=== PATIENT | male | born 1930 | race Caucasian/White ===

== ENCOUNTER 2017-08-11 19:40 | Inpatient (IN) | payer OTHER ==
[~2017-08-11] VITALS: Ht 177.8 cm; Wt 73.0 kg
[2017-08-11 19:55] VITALS: BP_SYST 123
[2017-08-11] MEDS ORDERED: NACL 0.9% 1,000 ML IV SCH (21:36)
[2017-08-11 22:47] LABS: BILIRUBIN,URINE NEGATIVE (NEGATIVE); CLARITY/URINE CLEAR (CLEAR); COLOR,URINE YELLOW (YELLOW); GLUCOSE,URINE NEGATIVE (NEGATIVE); KETONES,URINE NEGATIVE (NEGATIVE); LEUKOCYTE ESTERASE ,URINE TRACE (NEGATIVE); NITRITE, URINE NEGATIVE (NEGATIVE); PROTEIN URINE NEGATIVE (NEGATIVE)
[2017-08-11 22:53] LABS: BLOOD, URINE TRACE (NEGATIVE)
[2017-08-11 22:54] LABS: BACTERIA,URINE FEW /HPF (None Seen); RBC,URINE 0-3 /HPF (0-3)
[2017-08-11 22:55] LABS: MUCUS,URINE None Seen /LPF (None Seen)
[2017-08-11 22:57] LABS: BASOPHILS % (AUTO) 0.3 % (0.0-2.0); EOSINOPHILS # (AUTO) 0.2 K/uL (0.0-0.4); HEMATOCRIT 38.5 % (36-54); HEMOGLOBIN 12.9 g/dL (14.0-18.0); LYMPHOCYTES # (AUTO) 1.1 K/uL (1.0-5.5); LYMPHOCYTES % (AUTO) 20.2 % (20.5-51.5); MEAN CORPUSCULAR HEMOGLOBIN 28 pg (27-31); MEAN CORPUSCULAR HGB CONC 33 % (32-36); MEAN CORPUSCULAR VOLUME 85 fL (79.0-98.0); MONOCYTES # (AUTO) 0.5 K/uL (0.0-1.0); MONOCYTES % (AUTO) 8.6 % (1.7-9.3); NEUTROPHILS # (AUTO) 3.9 K/uL (1.8-7.7); NEUTROPHILS % (AUTO) 66.9 % (40.0-70.0); PLATELET COUNT (AUTO) 247 K/uL (130-430); RED BLOOD CELL COUNT(AUTO) 4.56 MIL/uL (4.2-6.2); WHITE BLOOD COUNT (AUTO) 5.7 K/uL (4.8-10.8)
[2017-08-11 23:02] LABS: ANION GAP 9 (5-15); CALCIUM 8.6 mg/dL (8.4-11.0); CHLORIDE 104 mmol/L (98-107); CREATININE 1.23 mg/dL (0.55-1.30); GLUCOSE 108 mg/dL (70-99); POTASSIUM 3.8 mmol/L (3.5-5.1); SODIUM SERUM 138 mmol/L (136-145); UREA NITROGEN, BLOOD 14 mg/dL (8-21)
[2017-08-11 23:07] LABS: ALANINE AMINOTRANSFERASE 20 U/L (12-78); ALBUMIN 2.9 g/dL (3.4-4.8); ASPARTATE AMINOTRANSFERASE 18 U/L (10-37); TOTAL BILIRUBIN 0.8 mg/dL (0.0-1.0)
[2017-08-12] MEDS ORDERED: ASPIRIN 81 MG TAB.CHEW PO ONE
[2017-08-12] MEDS ORDERED: FINA5TAB3 PO (00:26)
[2017-08-12] MEDS ORDERED: WARF2.5T2 PO (00:26)
[2017-08-12] MEDS ORDERED: TAMS-11 PO (00:26)
[2017-08-12] MEDS ORDERED: LIP10 PO (00:26)
[2017-08-12] MEDS ORDERED: POTA-118 PO (00:26)
[2017-08-12] MEDS ORDERED: CARV12.548 PO (00:26)
[2017-08-12] MEDS ORDERED: DIGO125T79 PO (00:26)
[2017-08-12] MEDS ORDERED: FURO-150 PO (00:26)
[2017-08-12] MEDS ORDERED: VITD2000 PO (00:26)
[2017-08-12 04:36] LABS: PROTHROMBIN TIME 71.2 SECS (9.5-12.5)
[2017-08-12 04:37] LABS: INR 6.2 (0.80-1.20)
[2017-08-12 04:54] VITALS: BP_SYST 120
[2017-08-12 08:00] VITALS: BP_SYST 117
[2017-08-12] MEDS ORDERED: PHYTONADIONE 5 MG TABLET PO ONE ×2 (09:30→10:45)
[2017-08-12] MEDS ORDERED: FUROSEMIDE 20 MG TABLET PO SCH (09:30)
[2017-08-12] MEDS ORDERED: FINASTERIDE 5 MG TABLET (PROSCAR) PO SCH (09:30)
[2017-08-12] MEDS ORDERED: CHOLECALCIFEROL (VITAMIN D3) 2,000 UNIT TABLET PO ONE ×2 (09:45→10:30)
[2017-08-12] MEDS ORDERED: DIGOXIN 0.125 MG TABLET PO ONE ×2 (09:45→10:30)
[2017-08-12] MEDS ORDERED: POTASSIUM CHLORIDE 10 MEQ TAB.PRT.SR PO ONE (10:00)
[2017-08-12] MEDS: IPRATROPIUM/ALBUTEROL SULFATE 3 ML AMPUL.NEB INH SCH ×3 (10:30→23:05)
[2017-08-12] MEDS: POTASSIUM CHLORIDE 10 MEQ TAB.PRT.SR PO SCH (10:42)
[2017-08-12] MEDS: CHOLECALCIFEROL (VITAMIN D3) 2,000 UNIT TABLET PO SCH ×2 (10:42→21:30)
[2017-08-12] MEDS ORDERED: FINASTERIDE 5 MG TABLET (PROSCAR) PO ONE (10:45)
[2017-08-12] MEDS: DIGOXIN 0.125 MG TABLET PO SCH (10:45)
[2017-08-12] MEDS ORDERED: FUROSEMIDE 20 MG TABLET PO ONE (10:45)
[2017-08-12] MEDS ORDERED: PHYTONADIONE 10 MG/ML AMP IM ONE (11:15)
[2017-08-12 12:06] VITALS: BP_SYST 119
[2017-08-12] MEDS: PIPERACILLIN/TAZO 3.375/DEX-IS 50 ML IV SCH ×3 (12:09→23:29)
[2017-08-12] MEDS: AZITHROMYCIN 500 MG in NS 250 ML IV SCH (12:09)
[2017-08-12] MEDS ORDERED: PHYTONADIONE 10 MG in NS 50 ML IV ONE (13:00)
[2017-08-12 15:57] VITALS: BP_SYST 121
[2017-08-12 16:13] VITALS: BP_SYST 121
[2017-08-12 20:00] VITALS: BP_SYST 92
[2017-08-12] MEDS: TAMSULOSIN HCL 0.4 MG CAP PO SCH (21:30)
[2017-08-12] MEDS: ATORVASTATIN 10 MG TABLET PO SCH (21:30)
[2017-08-13] VITALS (7 sets, daily range): BP systolic 98–112
[2017-08-13] MEDS: PIPERACILLIN/TAZO 3.375/DEX-IS 50 ML IV SCH ×4 (05:58→23:08)
[2017-08-13 07:02] LABS: INR 1.3 (0.80-1.20); PROTHROMBIN TIME 13.8 SECS (9.5-12.5)
[2017-08-13 07:04] LABS: BASOPHILS % (AUTO) 0.5 % (0.0-2.0); EOSINOPHILS # (AUTO) 0.2 K/uL (0.0-0.4); EOSINOPHILS % (AUTO) 3.7 % (0.0-4.0); HEMATOCRIT 35.1 % (36-54); HEMOGLOBIN 12.1 g/dL (14.0-18.0); LYMPHOCYTES # (AUTO) 1.4 K/uL (1.0-5.5); LYMPHOCYTES % (AUTO) 24.9 % (20.5-51.5); MEAN CORPUSCULAR HEMOGLOBIN 29 pg (27-31); MEAN CORPUSCULAR HGB CONC 34 % (32-36); MEAN CORPUSCULAR VOLUME 85 fL (79.0-98.0); MONOCYTES # (AUTO) 0.5 K/uL (0.0-1.0); MONOCYTES % (AUTO) 9.2 % (1.7-9.3); NEUTROPHILS # (AUTO) 3.3 K/uL (1.8-7.7); NEUTROPHILS % (AUTO) 61.7 % (40.0-70.0); PLATELET COUNT (AUTO) 233 K/uL (130-430); RED BLOOD CELL COUNT(AUTO) 4.12 MIL/uL (4.2-6.2); RED CELL DISTRIBUTION WIDTH 12.8 % (9.0-15.0); WHITE BLOOD COUNT (AUTO) 5.4 K/uL (4.8-10.8)
[2017-08-13 07:13] LABS: ALANINE AMINOTRANSFERASE 17 U/L (12-78); ANION GAP 10 (5-15); ASPARTATE AMINOTRANSFERASE 21 U/L (10-37); CALCIUM 8.3 mg/dL (8.4-11.0); CHLORIDE 105 mmol/L (98-107); CHOLESTEROL 98 mg/dL (<200); GLUCOSE 75 mg/dL (70-99); HDL CHOLESTEROL 29 mg/dL (>45); LDL CHOLESTEROL 74 mg/dL (<100); POTASSIUM 3.7 mmol/L (3.5-5.1); SODIUM SERUM 138 mmol/L (136-145); TOTAL BILIRUBIN 1.6 mg/dL (0.0-1.0); TRIGLYCERIDES 53 mg/dL (30-150); UREA NITROGEN, BLOOD 15 mg/dL (8-21)
[2017-08-13] MEDS: IPRATROPIUM/ALBUTEROL SULFATE 3 ML AMPUL.NEB INH SCH ×6 (07:13→23:00)
[2017-08-13] MEDS: DIGOXIN 0.125 MG TABLET PO SCH (09:34)
[2017-08-13] MEDS: CARVEDILOL 12.5 MG TABLET (COREG) PO SCH (09:34)
[2017-08-13] MEDS: CHOLECALCIFEROL (VITAMIN D3) 2,000 UNIT TABLET PO SCH ×2 (09:34→20:03)
[2017-08-13] MEDS: FUROSEMIDE 20 MG TABLET PO SCH (09:35)
[2017-08-13] MEDS: POTASSIUM CHLORIDE 10 MEQ TAB.PRT.SR PO SCH (09:35)
[2017-08-13] MEDS: FINASTERIDE 5 MG TABLET (PROSCAR) PO SCH (09:35)
[2017-08-13] MEDS: AZITHROMYCIN 500 MG in NS 250 ML IV SCH (09:36)
[2017-08-13] MEDS ORDERED: MUPIROCIN NASAL 2% OINT. 1 GM NS SCH (12:00)
[2017-08-13] MEDS ORDERED: DOXYCYCLINE HYCLATE 100 MG CAPSULE PO ONE (12:15)
[2017-08-13] MEDS ORDERED: IPRATROPIUM/ALBUTEROL SULFATE 3 ML AMPUL.NEB INH PRN (14:15)
[2017-08-13] MEDS: WARFARIN SODIUM 2 MG TABLET PO SCH (17:30)
[2017-08-13] MEDS: DOXYCYCLINE HYCLATE 100 MG CAPSULE PO SCH (20:03)
[2017-08-13] MEDS: ATORVASTATIN 10 MG TABLET PO SCH (20:03)
[2017-08-13] MEDS: TAMSULOSIN HCL 0.4 MG CAP PO SCH (20:03)
[2017-08-13] MEDS: MUPIROCIN 2% TOPICAL OINTMENT 22 GM NS SCH (20:22)
[2017-08-14] MEDS: IPRATROPIUM/ALBUTEROL SULFATE 3 ML AMPUL.NEB INH SCH ×9 (03:00→23:00)
[2017-08-14 04:16] VITALS: BP_SYST 104
[2017-08-14 04:34] LABS: BASOPHILS % (AUTO) 0.6 % (0.0-2.0); EOSINOPHILS # (AUTO) 0.2 K/uL (0.0-0.4); EOSINOPHILS % (AUTO) 3.5 % (0.0-4.0); HEMOGLOBIN 12.3 g/dL (14.0-18.0); LYMPHOCYTES # (AUTO) 1.3 K/uL (1.0-5.5); LYMPHOCYTES % (AUTO) 24.6 % (20.5-51.5); MEAN CORPUSCULAR HEMOGLOBIN 29 pg (27-31); MEAN CORPUSCULAR HGB CONC 34 % (32-36); MEAN CORPUSCULAR VOLUME 85 fL (79.0-98.0); MONOCYTES # (AUTO) 0.5 K/uL (0.0-1.0); MONOCYTES % (AUTO) 9.8 % (1.7-9.3); NEUTROPHILS # (AUTO) 3.4 K/uL (1.8-7.7); NEUTROPHILS % (AUTO) 61.5 % (40.0-70.0); PLATELET COUNT (AUTO) 233 K/uL (130-430); RED BLOOD CELL COUNT(AUTO) 4.24 MIL/uL (4.2-6.2); RED CELL DISTRIBUTION WIDTH 12.9 % (9.0-15.0); WHITE BLOOD COUNT (AUTO) 5.4 K/uL (4.8-10.8)
[2017-08-14 04:42] LABS: INR 1.1 (0.80-1.20); PROTHROMBIN TIME 12.4 SECS (9.5-12.5)
[2017-08-14 04:48] LABS: ANION GAP 6 (5-15); CALCIUM 8.5 mg/dL (8.4-11.0); CHLORIDE 107 mmol/L (98-107); DIGOXIN 0.6 ng/mL (0.80-2.00); GLUCOSE 86 mg/dL (70-99); POTASSIUM 3.5 mmol/L (3.5-5.1); SODIUM SERUM 136 mmol/L (136-145); UREA NITROGEN, BLOOD 14 mg/dL (8-21)
[2017-08-14] MEDS: PIPERACILLIN/TAZO 3.375/DEX-IS 50 ML IV SCH ×4 (05:05→23:42)
[2017-08-14 08:47] VITALS: BP_SYST 108
[2017-08-14] MEDS: CARVEDILOL 12.5 MG TABLET (COREG) PO SCH (09:00)
[2017-08-14] MEDS: FUROSEMIDE 20 MG TABLET PO SCH (09:00)
[2017-08-14] MEDS: POTASSIUM CHLORIDE 10 MEQ TAB.PRT.SR PO SCH (10:05)
[2017-08-14] MEDS: DOXYCYCLINE HYCLATE 100 MG CAPSULE PO SCH ×2 (10:05→20:53)
[2017-08-14] MEDS: CHOLECALCIFEROL (VITAMIN D3) 2,000 UNIT TABLET PO SCH ×2 (10:05→20:53)
[2017-08-14] MEDS: DIGOXIN 0.125 MG TABLET PO SCH (10:06)
[2017-08-14] MEDS: MUPIROCIN 2% TOPICAL OINTMENT 22 GM NS SCH ×2 (10:08→20:54)
[2017-08-14] MEDS: FINASTERIDE 5 MG TABLET (PROSCAR) PO SCH (10:14)
[2017-08-14] MEDS ORDERED: ENOXAPARIN SODIUM 40 MG/0.4 ML SYRINGE SUBCUT SCH (10:30)
[2017-08-14] MEDS ORDERED: WARFARIN SODIUM 4 MG TABLET PO ONE (10:30)
[2017-08-14 12:17] VITALS: BP_SYST 103
[2017-08-14] MEDS ORDERED: NA PHOS,M-B/NA PHOS,DI-BA 118 ML (FLEET ENEMA) RC ONE (13:00)
[2017-08-14] MEDS ORDERED: MINERAL OIL 133 ML ENEMA RC ONE (13:00)
[2017-08-14] MEDS: DOCUSATE SODIUM 250 MG CAPSULE PO SCH ×2 (16:42→20:53)
[2017-08-14] MEDS: WARFARIN SODIUM 2 MG TABLET PO SCH (16:58)
[2017-08-14 18:48] VITALS: BP_SYST 112
[2017-08-14 20:26] VITALS: BP_SYST 98
[2017-08-14] MEDS: TAMSULOSIN HCL 0.4 MG CAP PO SCH (20:53)
[2017-08-14] MEDS: ATORVASTATIN 10 MG TABLET PO SCH (20:53)
[2017-08-14] MEDS: ENOXAPARIN SODIUM 60 MG/0.6 ML SYRINGE SUBCUT SCH (20:53)
[2017-08-15] VITALS (7 sets, daily range): BP systolic 106–128
[2017-08-15] MEDS: IPRATROPIUM/ALBUTEROL SULFATE 3 ML AMPUL.NEB INH SCH ×8 (03:00→23:00)
[2017-08-15] MEDS: PIPERACILLIN/TAZO 3.375/DEX-IS 50 ML IV SCH ×3 (05:36→18:15)
[2017-08-15 07:53] LABS: INR 1.1 (0.80-1.20); PROTHROMBIN TIME 12.3 SECS (9.5-12.5)
[2017-08-15 07:54] LABS: BASOPHILS % (AUTO) 0.3 % (0.0-2.0); EOSINOPHILS # (AUTO) 0.3 K/uL (0.0-0.4); EOSINOPHILS % (AUTO) 3.8 % (0.0-4.0); HEMATOCRIT 37.4 % (36-54); HEMOGLOBIN 12.5 g/dL (14.0-18.0); LYMPHOCYTES # (AUTO) 1.4 K/uL (1.0-5.5); LYMPHOCYTES % (AUTO) 20.9 % (20.5-51.5); MEAN CORPUSCULAR HEMOGLOBIN 28 pg (27-31); MEAN CORPUSCULAR HGB CONC 33 % (32-36); MEAN CORPUSCULAR VOLUME 85 fL (79.0-98.0); MONOCYTES # (AUTO) 0.6 K/uL (0.0-1.0); MONOCYTES % (AUTO) 9.6 % (1.7-9.3); NEUTROPHILS # (AUTO) 4.4 K/uL (1.8-7.7); NEUTROPHILS % (AUTO) 65.4 % (40.0-70.0); PLATELET COUNT (AUTO) 240 K/uL (130-430); RED BLOOD CELL COUNT(AUTO) 4.39 MIL/uL (4.2-6.2); RED CELL DISTRIBUTION WIDTH 12.6 % (9.0-15.0); WHITE BLOOD COUNT (AUTO) 6.7 K/uL (4.8-10.8)
[2017-08-15 07:58] LABS: ANION GAP 11 (5-15); CALCIUM 9.1 mg/dL (8.4-11.0); CHLORIDE 106 mmol/L (98-107); CREATININE 1.44 mg/dL (0.55-1.30); GLUCOSE 82 mg/dL (70-99); POTASSIUM 3.1 mmol/L (3.5-5.1); SODIUM SERUM 141 mmol/L (136-145); UREA NITROGEN, BLOOD 15 mg/dL (8-21)
[2017-08-15] MEDS: CHOLECALCIFEROL (VITAMIN D3) 2,000 UNIT TABLET PO SCH ×2 (09:55→21:36)
[2017-08-15] MEDS: DIGOXIN 0.125 MG TABLET PO SCH (09:55)
[2017-08-15] MEDS: DOXYCYCLINE HYCLATE 100 MG CAPSULE PO SCH ×2 (09:56→21:37)
[2017-08-15] MEDS: POTASSIUM CHLORIDE 10 MEQ TAB.PRT.SR PO SCH (09:56)
[2017-08-15] MEDS: FINASTERIDE 5 MG TABLET (PROSCAR) PO SCH (09:56)
[2017-08-15] MEDS: DOCUSATE SODIUM 250 MG CAPSULE PO SCH ×2 (09:56→21:00)
[2017-08-15] MEDS: ENOXAPARIN SODIUM 60 MG/0.6 ML SYRINGE SUBCUT SCH ×2 (09:59→21:38)
[2017-08-15] MEDS: CARVEDILOL 12.5 MG TABLET (COREG) PO SCH (10:00)
[2017-08-15] MEDS: MUPIROCIN 2% TOPICAL OINTMENT 22 GM NS SCH ×2 (10:00→21:41)
[2017-08-15] MEDS ORDERED: POTASSIUM CHLORIDE 40 MEQ, LIDOCAINE JECT 2% PF 100 MG 50 MG in NS 250 ML IV ONE (13:00)
[2017-08-15] MEDS: WARFARIN SODIUM 2 MG TABLET PO SCH (18:00)
[2017-08-15] MEDS: TAMSULOSIN HCL 0.4 MG CAP PO SCH (21:36)
[2017-08-15] MEDS: ATORVASTATIN 10 MG TABLET PO SCH (21:36)
[2017-08-16] MEDS: PIPERACILLIN/TAZO 3.375/DEX-IS 50 ML IV SCH ×3 (01:13→11:50)
[2017-08-16] MEDS: IPRATROPIUM/ALBUTEROL SULFATE 3 ML AMPUL.NEB INH SCH ×4 (03:00→15:22)
[2017-08-16] MEDS ORDERED: LORazepam 1 MG TABLET PO PRN (06:30)
[2017-08-16 07:30] VITALS: BP_SYST 149
[2017-08-16 07:33] LABS: EOSINOPHILS # (AUTO) 0.3 K/uL (0.0-0.4); MONOCYTES # (AUTO) 0.5 K/uL (0.0-1.0); NEUTROPHILS # (AUTO) 3.4 K/uL (1.8-7.7); NEUTROPHILS % (AUTO) 60.6 % (40.0-70.0); RED CELL DISTRIBUTION WIDTH 13.4 % (9.0-15.0)
[2017-08-16 07:40] LABS: INR 1.2 (0.80-1.20); PROTHROMBIN TIME 12.7 SECS (9.5-12.5)
[2017-08-16 07:46] LABS: ANION GAP 13 (5-15); CALCIUM 9.3 mg/dL (8.4-11.0); CHLORIDE 108 mmol/L (98-107); CREATININE 1.35 mg/dL (0.55-1.30); GLUCOSE 77 mg/dL (70-99); POTASSIUM 3.9 mmol/L (3.5-5.1); SODIUM SERUM 141 mmol/L (136-145); UREA NITROGEN, BLOOD 14 mg/dL (8-21)
[2017-08-16 07:56] LABS: BASOPHILS % (AUTO) 0.6 % (0.0-2.0); EOSINOPHILS % (AUTO) 5.2 % (0.0-4.0); HEMATOCRIT 37.9 % (36-54); HEMOGLOBIN 12.5 g/dL (14.0-18.0); LYMPHOCYTES # (AUTO) 1.4 K/uL (1.0-5.5); LYMPHOCYTES % (AUTO) 25.4 % (20.5-51.5); MEAN CORPUSCULAR HEMOGLOBIN 28 pg (27-31); MEAN CORPUSCULAR HGB CONC 33 % (32-36); MEAN CORPUSCULAR VOLUME 86 fL (79.0-98.0); MONOCYTES % (AUTO) 8.2 % (1.7-9.3); PLATELET COUNT (AUTO) 243 K/uL (130-430); WHITE BLOOD COUNT (AUTO) 5.6 K/uL (4.8-10.8)
[2017-08-16] MEDS: FINASTERIDE 5 MG TABLET (PROSCAR) PO SCH (09:00)
[2017-08-16] MEDS: ENOXAPARIN SODIUM 60 MG/0.6 ML SYRINGE SUBCUT SCH (09:00)
[2017-08-16] MEDS: DOCUSATE SODIUM 250 MG CAPSULE PO SCH (11:46)
[2017-08-16] MEDS: CHOLECALCIFEROL (VITAMIN D3) 2,000 UNIT TABLET PO SCH (11:46)
[2017-08-16] MEDS: DOXYCYCLINE HYCLATE 100 MG CAPSULE PO SCH (11:47)
[2017-08-16] MEDS: POTASSIUM CHLORIDE 10 MEQ TAB.PRT.SR PO SCH (11:47)
[2017-08-16] MEDS: DIGOXIN 0.125 MG TABLET PO SCH (11:47)
[2017-08-16] MEDS: CARVEDILOL 12.5 MG TABLET (COREG) PO SCH (11:48)
[2017-08-16] MEDS: MUPIROCIN 2% TOPICAL OINTMENT 22 GM NS SCH (11:49)
[2017-08-16 12:06] VITALS: BP_SYST 137
[2017-08-16 13:54] VITALS: BP_SYST 132
[2017-08-16] MEDS ORDERED: MIRTAZAPINE 15 MG TABLET PO SCH (21:00)
== END 2017-08-16 15:50 | DRG 280 ==
LOC: SED 19:40 → STU 08-12 00:28
PROVIDERS: ADMIT Internal Medicine; ATTEND Internal Medicine
DX: I21.3 ST elevation (STEMI) myocardial infarction of unspecified site (principal); J18.9 Pneumonia, unspecified organism; I11.0 Hypertensive heart disease with heart failure; D68.59 Other primary thrombophilia; I50.9 Heart failure, unspecified; F03.90 Unspecified dementia, unspecified severity, without behavioral disturbance, psychotic disturbance, mood disturbance, and anxiety; I08.2 Rheumatic disorders of both aortic and tricuspid valves; R13.10 Dysphagia, unspecified; N39.0 Urinary tract infection, site not specified; I48.2 Chronic atrial fibrillation; R63.0 Anorexia; T45.515A Adverse effect of anticoagulants, initial encounter; N40.0 Benign prostatic hyperplasia without lower urinary tract symptoms; K43.9 Ventral hernia without obstruction or gangrene; K40.90 Unilateral inguinal hernia, without obstruction or gangrene, not specified as recurrent; F32.9 Major depressive disorder, single episode, unspecified; E78.5 Hyperlipidemia, unspecified; I25.5 Ischemic cardiomyopathy; F29 Unspecified psychosis not due to a substance or known physiological condition; Z95.2 Presence of prosthetic heart valve; Z79.01 Long term (current) use of anticoagulants; Z79.899 Other long term (current) drug therapy; Z88.1 Allergy status to other antibiotic agents; Y92.89 Other specified places as the place of occurrence of the external cause; Z22.322 Carrier or suspected carrier of Methicillin resistant Staphylococcus aureus; Z68.23 Body mass index [BMI] 23.0-23.9, adult
CPT/HCPCS: 36415; 36600; 71010; 71250-TC; 80048; 80053; 80061; 80162-TC; 81000-TC; 82803-TC; 82962; 83735-TC; 83880; 84484; 85025; 85379; 85610-TC; 85730-TC; 87081; 87086; 92610-GN; 93005; 93306; 94640; 94760; 96360; 97110-GP; 97116-GP; 97530-GP; 99285; J0456; J1650; J2543; J3430; J3480; J7030; J7040; J7050